=== PATIENT | male | born 1970 | race Caucasian/White ===

== ENCOUNTER 2018-08-28 22:25 | Inpatient (IN) ==
[2018-08-29] MEDS ORDERED: Sod Chloride 0.9% Inj 1,000 ML IV.SIG ONE (00:33)
[2018-08-29 00:46] LABS: Baso % (Auto) 0.4 % (0.0-2.0); Eos # (Auto) 0.1 th/mm3 (0.0-0.4); Hematocrit 40.8 % (39.0-51.0); Hemoglobin 13.2 gm/dL (13.0-17.0); Lymph # (Auto) 2.2 th/mm3 (1.0-4.8); Mean Corpuscular HGB Conc 32.4 % (32.0-36.0); Mean Corpuscular Hemoglobin 27.4 pg (27.0-34.0); Mean Corpuscular Volume 84.7 fL (80.0-100.0); Mean Platelet Volume 9.7 fL (7.0-11.0); Mono # (Auto) 0.8 th/mm3 (0.0-0.9); Mono % (Auto) 9.8 % (0.0-8.0); Neut # (Auto) 4.6 th/mm3 (1.8-7.7); Neut % (Auto) 59.8 % (16.0-70.0); Platelet Count 159 th/mm3 (150-450); Red Blood Count 4.82 mil/mm3 (4.50-5.90); Red Cell Distribution Width 14.7 % (11.6-17.2); White Blood Count 7.7 th/mm3 (4.0-11.0)
[2018-08-29 00:57] LABS: Activated Partial Thrombo Time 26.9 sec (23.4-31.7); INR 1.2 Ratio; Prothrombin Time 11.7 sec (9.8-11.6)
[2018-08-29 01:16] LABS: Alanine Aminotransferase 34 U/L (12-78); Albumin 3.8 g/dL (3.4-5.0); Anion Gap 6 meq/L (5-15); Aspartate Aminotransferase 23 U/L (15-37); Blood Urea Nitrogen 28 mg/dL (7-18); Calcium 7.9 mg/dL (8.5-10.1); Carbon Dioxide 29.4 meq/L (21.0-32.0); Chloride 108 meq/L (98-107); Glomerular Filtration Rate 67 mL/min (>89); Glucose,Random 109 mg/dL (74-106); Potassium 3.6 meq/L (3.5-5.1); Sodium 143 meq/L (136-145)
[2018-08-29 01:17] LABS: Alkaline Phosphatase 60 U/L (45-117); Total Protein 6.8 g/dL (6.4-8.2)
--- NOTE | 2018-08-29 01:22 | ED ---
HPI General Chief complaint: GI Bleed Stated complaint: Blood in stool, Stomach pain Time Seen by Provider: 08/29/18 00:19 Source: patient Mode of arrival: ambulatory Limitations: no limitations History of Present Illness HPI Narrative: 47 yo M c/o BRBPR for the past two days. + hx colonoscopy > five years ago, not sure of results. minimal generalized abdominal pain precedes urge to defecate followed by liquid bloody stool and resolution of pain. no n/ v. no fever/chills. no similar prior events. no recent travel. no family hx colon ca. pt otherwise healthy, denies significant PMH. Med reconciliation shows methylphenidate and metoprolol. Related Data Home Medications Medication Instructions Recorded Confirmed methylphenidate HCl [Concerta] 18 mg PO DAILY 08/29/18 08/29/18 metoprolol tartrate 25 mg PO DAILY 08/29/18 08/29/18 Allergies Allergy/AdvReac Type Severity Reaction Status Date / Time No Known Allergies Allergy Verified 08/28/18 22:41 Review of Systems ROS: all other systems reviewed are negative [facility] Medical History Medical History ADD (attention deficit disorder) (Acute) Hypertension (Acute) Surgical History Surgical History No history of previous surgery (Acute) Social History Social History Substance History: No History of Abuse Second Hand Smoke Exposure: No Smoking Status: Never smoker How Often Do You Have a Drink Containing Alcohol: Monthly or less Recent Travel in [facility] within the Last 8 Weeks: No Recent Out of Country Travel within the Last 8 Weeks: No Immunization History Tetanus Immunization: Unsure Exam Narrative Exam Narrative: GENERAL: 47-year-old male well-nourished well-developed pleasant RECTAL: No external hemorrhoid. Dark red blood guaiac positive. No mass. SKIN: Focused skin assessment warm/dry. HEAD: Atraumatic. Normocephalic. EYES: Pupils equal and round. No scleral icterus. No injection or drainage. ENT: No nasal bleeding or discharge. Mucous membranes pink and moist. NECK: Trachea midline. No JVD. CARDIOVASCULAR: Regular rate and rhythm. No murmur appreciated. RESPIRATORY: No accessory muscle use. Clear to auscultation. Breath sounds equal bilaterally. GASTROINTESTINAL: Abdomen soft, non-tender, nondistended. Hepatic and splenic margins not palpable. MUSCULOSKELETAL: No obvious deformities. No clubbing. No cyanosis. No edema. NEUROLOGICAL: Awake and alert. No obvious cranial nerve deficits. Motor grossly within normal limits. Normal speech. PSYCHIATRIC: Appropriate mood and affect; insight and judgment normal. Procedures Hemaprompt Stool Procedural Steps Taken: specimen placed in appropriate test area, developer placed on specimen and control areas and controls appropriately positive and negative Hemaprompt Stool Result: positive Course Initial Documented Vital Signs Temperature 98.5 F 08/28/18 22:41 Pulse Rate 77 08/28/18 22:41 Respiratory Rate 15 08/28/18 22:41 Blood Pressure 120/72 08/28/18 22:41 Pulse Oximetry 97 08/28/18 22:41 Last Documented Vital Signs Temperature 98.5 F 08/28/18 22:41 Pulse Rate 69 08/29/18 00:34 Respiratory Rate 17 08/29/18 00:34 Blood Pressure 123/75 08/29/18 00:34 Pulse Oximetry 99 08/29/18 00:35 Medical Decision Making MDM Narrative Medical decision making narrative: The white blood cell count is 7700 with a hemoglobin of 13.2 and a platelet count of 159 The BUN/creatinine is 28/1.16 The remaining indices are normal 47-year-old male with hematochezia for two days. Patient is hemodynamically stable currently. d/w Dr Bray for [facility] at approximately 130AM. Medical Screen Exam Complete: Yes Emergency Medical Condition: Yes Lab Data Result diagrams: 08/29/18 00:35 08/29/18 00:35 Lab Results 08/29/18 08/29/18 08/29/18 Range/Units 00:35 00:35 00:35 WBC 7.7 (4.0-11.0) th/mm3 RBC 4.82 (4.50-5.90) mil/mm3 Hgb 13.2 (13.0-17.0) gm/dL Hct 40.8 (39.0-51.0) % MCV 84.7 (80.0-100.0) fL MCH 27.4 (27.0-34.0) pg MCHC 32.4 (32.0-36.0) % RDW 14.7 (11.6-17.2) % Plt Count 159 (150-450) th/mm3 MPV 9.7 (7.0-11.0) fL Neut % (Auto) 59.8 (16.0-70.0) % Lymph % (Auto) 29.0 (9.0-44.0) % [place] % (Auto) 9.8 H (0.0-8.0) % Eos % (Auto) 1.0 (0.0-4.0) % Baso % (Auto) 0.4 (0.0-2.0) % Neut # (Auto) 4.6 (1.8-7.7) th/mm3 Lymph # (Auto) 2.2 (1.0-4.8) th/mm3 [place] # (Auto) 0.8 (0.0-0.9) th/mm3 Eos # (Auto) 0.1 (0.0-0.4) th/mm3 Baso # (Auto) 0.0 (0.0-0.2) th/mm3 WBC Differential . Differential Comment Auto diff final PT 11.7 H (9.8-11.6) sec INR 1.2 Ratio APTT 26.9 (23.4-31.7) sec Sodium 143 (136-145) meq/L Potassium 3.6 (3.5-5.1) meq/L Chloride 108 H (98-107) meq/L Carbon Dioxide 29.4 (21.0-32.0) meq/L Anion Gap 6 (5-15) meq/L BUN 28 H (7-18) mg/dL Creatinine 1.16 (0.60-1.30) mg/dL Estimated GFR 67 L (>89) mL/min Random Glucose 109 H (74-106) mg/dL Calcium 7.9 L (8.5-10.1) mg/dL Total Bilirubin 0.4 (0.2-1.0) mg/dL AST 23 (15-37) U/L ALT 34 (12-78) U/L Alkaline Phosphatase 60 (45-117) U/L Total Protein 6.8 (6.4-8.2) g/dL Albumin 3.8 (3.4-5.0) g/dL Blood Type Blood Type Recheck Antibody Screen 08/29/18 Range/Units 00:35 WBC (4.0-11.0) th/mm3 RBC (4.50-5.90) mil/mm3 Hgb (13.0-17.0) gm/dL Hct (39.0-51.0) % MCV (80.0-100.0) fL MCH (27.0-34.0) pg MCHC (32.0-36.0) % RDW (11.6-17.2) % Plt Count (150-450) th/mm3 MPV (7.0-11.0) fL Neut % (Auto) (16.0-70.0) % Lymph % (Auto) (9.0-44.0) % [place] % (Auto) (0.0-8.0) % Eos % (Auto) (0.0-4.0) % Baso % (Auto) (0.0-2.0) % Neut # (Auto) (1.8-7.7) th/mm3 Lymph # (Auto) (1.0-4.8) th/mm3 [place] # (Auto) (0.0-0.9) th/mm3 Eos # (Auto) (0.0-0.4) th/mm3 Baso # (Auto) (0.0-0.2) th/mm3 WBC Differential Differential Comment PT (9.8-11.6) sec INR Ratio APTT (23.4-31.7) sec Sodium (136-145) meq/L Potassium (3.5-5.1) meq/L Chloride (98-107) meq/L Carbon Dioxide (21.0-32.0) meq/L Anion Gap (5-15) meq/L BUN (7-18) mg/dL Creatinine (0.60-1.30) mg/dL Estimated GFR (>89) mL/min Random Glucose (74-106) mg/dL Calcium (8.5-10.1) mg/dL Total Bilirubin (0.2-1.0) mg/dL AST (15-37) U/L ALT (12-78) U/L Alkaline Phosphatase (45-117) U/L Total Protein (6.4-8.2) g/dL Albumin (3.4-5.0) g/dL Blood Type O Positive Blood Type Recheck Required Antibody Screen Negative Discharge Plan Discharge Order Discharge Orders: ED Use Only Admit Order (Routine); Ordered 08/29/18 Ordered By: Valentín Bey Physicians Team ED Provider: Valentín Bey Primary Care Provider: UNKNOWN, Rxs /Orders / Referrals /Forms Prescriptions: No Action methylphenidate HCl [Concerta] 18 mg Tablet Extended Release 24hr 18 mg PO DAILY RF: 0 metoprolol tartrate 25 mg Tablet 25 mg PO DAILY RF: 0 Discharge Interventions Interventions: Vital Signs Last Done: 08/29/18 00:34 Status ED Status: With Doctor
[2018-08-29] MEDS ORDERED: Bisacodyl 10 MG Supp RECTAL PRN (01:36)
[2018-08-29] MEDS: Sod Chloride 0.9% Inj 1,000 ML IV.CONT SCH ×3 (02:09→13:03)
--- NOTE | 2018-08-29 03:09 | P.HPIM ---
History of Present Illness Service: [facility] Primary Care Physician: UNKNOWN Chief Complaint: Bloody stools History of Present Illness: 47-year-old male with a history of ADD and hypertension presented to the ED with complaints of bloody stools. He states for the last 2 days he has been having pain with defecation followed by liquid bloody stools. He denies any nausea or vomiting or fevers or chills. His last colonoscopy was greater than 5 years ago. Hemoccult positive in ER. [facility] Medical History Medical History ADD (attention deficit disorder) (Acute) Hypertension (Acute) Surgical History Surgical History No history of previous surgery (Acute) Family History Family History Other Family history non-contributory Social History Social History Substance History: No History of Abuse Second Hand Smoke Exposure: No Smoking Status: Never smoker How Often Do You Have a Drink Containing Alcohol: Monthly or less Recent Travel in [facility] within the Last 8 Weeks: No Recent Out of Country Travel within the Last 8 Weeks: No Immunization History Tetanus Immunization: Unsure Medications and Allergies Allergies Allergy/AdvReac Type Severity Reaction Status Date / Time No Known Allergies Allergy Verified 08/28/18 22:41 Home Medications Medication Instructions Recorded Confirmed Type methylphenidate HCl [Concerta] 18 mg PO DAILY 08/29/18 08/29/18 History metoprolol tartrate 25 mg PO DAILY 08/29/18 08/29/18 History Active Medications: Active Medications Acetaminophen (Tylenol) 650 mg PO Q4H PRN PRN Reason: Temp > 100.4 Al Hydroxide/Mg Hydroxide (Milk Of Magnesia Liq) 30 ml PO Q12H PRN PRN Reason: Mild Constipation Bisacodyl (Dulcolax Supp) 10 mg RECTAL DAILY PRN PRN Reason: SEVERE CONSITIPATION Sodium Chloride (Ns Inj) 1,000 mls @ 100 mls/hr IV.CONT .Q10H KENNETH Last Admin: 08/29/18 02:09 Dose: 100 mls/hr Lactulose (Lactulose Liq) 30 ml PO DAILY PRN PRN Reason: SEVERE CONSITIPATION Ondansetron HCl (Zofran Inj) 4 mg IV.PUSH Q6H PRN PRN Reason: NAUSEA OR VOMITING Pantoprazole Sodium (Protonix Inj) 40 mg IV.PUSH Q12H KENNETH Senna/Docusate Sodium (Anna-Colace) 1 tab PO BID KENNETH Sennosides (Senokot) 17.2 mg PO Q12H PRN PRN Reason: Moderate Constipation Sodium Chloride (Ns Flush) 2 ml IV.FLUSH PRN PRN PRN Reason: FLUSH AFTER USING IV ACCESS Sodium Chloride (Ns Flush) 2 ml IV.FLUSH BID KENNETH Sodium Chloride (Ns Flush) 2 ml IV.FLUSH PRN PRN PRN Reason: FLUSH AFTER USING IV ACCESS Physical Exam Vital signs: Vital Signs 08/28/18 22:41 08/29/18 00:34 08/29/18 00:35 Temperature 98.5 F Pulse Rate 77 69 Respiratory Rate 15 17 Blood Pressure 120/72 123/75 Pulse Oximetry 97 99 99 08/29/18 02:04 08/29/18 02:08 Temperature Pulse Rate 68 76 Respiratory Rate 16 Blood Pressure 105/69 Pulse Oximetry 98 Intake & Output 08/28/18 08/28/18 08/29/18 06:59 18:59 06:59 Intake Total 1000 / 1000 Balance 1000 / 1000 Weight 100.6 kg Intake: IV 1000 / 1000 NS Inj 1,000 ML @ Wide Open IV. 1000 / 1000 SIG BOLUS ONE Rx#:[id number] Narrative: GENERAL: Well-nourished patient in no acute distress SKIN: Warm and dry. EYES: No scleral icterus. No injection or drainage. NECK: Supple, trachea midline. No JVD or lymphadenopathy. CARDIOVASCULAR: Regular rate and rhythm without murmurs, gallops, or rubs. RESPIRATORY: Breath sounds equal bilaterally. No accessory muscle use. GASTROINTESTINAL: Abdomen soft, non-tender, nondistended. MUSCULOSKELETAL: No cyanosis, or edema. Results Labs CBC & Chem 7: 08/29/18 00:35 08/29/18 00:35 Caprini VTE Risk Assessment Caprini VTE Risk Assessment: No/Low Risk (score <= 1) Caprini Risk Assessment Model: Point Value = 1 Point Value = 2 Point Value = 3 Point Value = 5 Age 41-60 Minor surgery BMI > 25 kg/m2 Swollen legs Varicose veins or History of unexplained or recurrent spontaneous Oral contraceptives or hormone replacement Sepsis (< 1 month) Serious lung disease, including pneumonia (< 1 month) Abnormal pulmonary function Acute myocardial infarction Congestive heart failure (< 1 month) History of inflammatory bowel disease Medical patient at bed rest Age 61-74 Arthroscopic surgery Major open surgery (> 45 min) Laparoscopic surgery (> 45 min) Malignancy Confined to bed (> 72 hours) Immobilizing plaster cast Central venous access Age >= 75 History of VTE Family history of VTE Factor V Leiden Prothrombin 32030T Lupus anticoagulant Anticardiolipin antibodies Elevated serum homocysteine Heparin-induced thrombocytopenia Other congenital or acquired thrombophilia Stroke (< 1 month) Elective arthroplasty Hip, pelvis, or leg fracture Acute spinal cord injury (< 1 month) Prophylaxis Regimen: Total Risk Factor Score Risk Level Prophylaxis Regimen 0-1 Low Early ambulation 2 Moderate Order ONE of the following: *Sequential Compression Device (SCD) *Heparin 5000 units SQ BID 3-4 Higher Order ONE of the following medications: *Heparin 5000 units SQ TID *Enoxaparin/Lovenox 40 mg SQ daily (WT < 150 kg, CrCl > 30 mL/min) *Enoxaparin/Lovenox 30 mg SQ daily (WT < 150 kg, CrCl > 10-29 mL/min) *Enoxaparin/Lovenox 30 mg SQ BID (WT < 150 kg, CrCl > 30 mL/min) AND/OR *Sequential Compression Device (SCD) 5 or more Highest Order ONE of the following medications: *Heparin 5000 units SQ TID (Preferred with Epidurals) *Enoxaparin/Lovenox 40 mg SQ daily (WT < 150 kg, CrCl > 30 mL/min) *Enoxaparin/Lovenox 30 mg SQ daily (WT < 150 kg, CrCl > 10-29 mL/min) *Enoxaparin/Lovenox 30 mg SQ BID (WT < 150 kg, CrCl > 30 mL/min) AND *Sequential Compression Device (SCD) Assessment and Plan Plan 47-year-old male with a history of ADD and hypertension presented to the ED with complaints of bloody stools. GI bleed Hemoccult positive in the ER -Hemoglobin is stable at 13.2, serial hemoglobins ordered -Protonix IV -GI for evaluation -N.p.o. Hypertension, chronic -Resume home medications, monitor vitals DVT prophylaxis: SCDs, hold chemical due to GI bleed
[2018-08-29] MEDS: Pantoprazole Inj 40 MG Vial IV.PUSH SCH ×2 (09:42→20:57)
[2018-08-29] MEDS: Senna/Docusate Sodium 8.6/50 MG Tablet PO SCH ×2 (09:42→21:04)
[2018-08-29] MEDS: METHYLPHENIDATE 18 MG PO SCH (09:43)
[2018-08-29] MEDS: Metoprolol Tartrate 25 MG Tablet PO SCH (09:44)
[2018-08-29 12:13] LABS: Baso % (Auto) 0.3 % (0.0-2.0); Eos % (Auto) 0.8 % (0.0-4.0); Hematocrit 32.6 % (39.0-51.0); Hemoglobin 10.7 gm/dL (13.0-17.0); Lymph # (Auto) 1.1 th/mm3 (1.0-4.8); Lymph % (Auto) 24.6 % (9.0-44.0); Mean Corpuscular HGB Conc 32.8 % (32.0-36.0); Mean Corpuscular Hemoglobin 28.3 pg (27.0-34.0); Mean Corpuscular Volume 86.3 fL (80.0-100.0); Mean Platelet Volume 9.4 fL (7.0-11.0); Mono # (Auto) 0.4 th/mm3 (0.0-0.9); Mono % (Auto) 8.6 % (0.0-8.0); Neut % (Auto) 65.7 % (16.0-70.0); Platelet Count 128 th/mm3 (150-450); Red Blood Count 3.78 mil/mm3 (4.50-5.90); White Blood Count 4.5 th/mm3 (4.0-11.0)
--- NOTE | 2018-08-29 13:34 | P.CONGI ---
History of Present Illness Consult date: 08/29/18 Consult reason: Rectal bleed Chief complaint: Lower GI bleed History of Present Illness: Patient is a pleasant 47-year-old male with history of hypertension ADD who came to the ER last night for profuse bloody stools. Reported that for the last 2 days he has been having bloody stools with mild diffuse abdominal pain with no nausea and vomiting. Patient denies fever. Patient stated that this has happened to him in the past where he had a colonoscopy and showed normal result. However patient cannot remember the year but could be more than 5 years ago. Otherwise he said he is pretty healthy. He does not take any blood thinners at home. He admitted to drinking alcohol occasionally but does not smoke cigarettes. he denies any change in his medications. Our service is consulted for rectal bleeding. <Funmilayo Singh - Last Filed: 08/29/18 13:24> Review of Systems All other systems reviewed negative except as stated in HPI <Funmilayo Singh - Last Filed: 08/29/18 13:24> PMFSH - History History Provided By: Patient - Medical History Medical History: Medical History (Last Reviewed 08/29/18 @ 03:23 by PATRICA Burton) ADD (attention deficit disorder) Hypertension - Surgical History Surgical History: Surgical History (Last Reviewed 08/29/18 @ 03:23 by PATRICA Burton) No history of previous surgery - Family History Family History: Family History (Last Reviewed 08/29/18 @ 03:23 by PATRICA Burton) Other Family history non-contributory - Tobacco History Second Hand Smoke Exposure: No Tobacco Use In Past 30 Days: No Smoking Status: Never smoker - Alcohol History How Often Do You Have a Drink Containing Alcohol: Monthly or less - Substance Use History Substance History: No History of Abuse - Travel History Recent Travel in the [place] Within the Last 8 Weeks: No Recent Travel Out of the Country Within the Last 8 Weeks: No - Immunization History Tetanus Immunization: Unsure <Funmilayo Singh - Last Filed: 08/29/18 13:24> - Medical History Medical History: Medical History (Last Reviewed 08/29/18 @ 03:23 by PATRICA Burton) ADD (attention deficit disorder) Hypertension - Surgical History Surgical History: Surgical History (Last Reviewed 08/29/18 @ 03:23 by PATRICA Burton) No history of previous surgery - Family History Family History: Family History (Last Reviewed 08/29/18 @ 03:23 by PATRICA Burton) Other Family history non-contributory <Jean-PierreHarvey veras - Last Filed: 08/29/18 13:49> Medications and Allergies Active Medications: Active Medications Acetaminophen (Tylenol) 650 mg PO Q4H PRN PRN Reason: Temp > 100.4 Al Hydroxide/Mg Hydroxide (Milk Of Magnesia Liq) 30 ml PO Q12H PRN PRN Reason: Mild Constipation Bisacodyl (Dulcolax Supp) 10 mg RECTAL DAILY PRN PRN Reason: SEVERE CONSITIPATION Sodium Chloride (Ns Inj) 1,000 mls @ 100 mls/hr IV.CONT .Q10H [facility] Last Admin: 08/29/18 13:03 Dose: 100 mls/hr Lactulose (Lactulose Liq) 30 ml PO DAILY PRN PRN Reason: SEVERE CONSITIPATION Methylphenidate HCl (Concerta) 18 mg PO DAILY [facility] Last Admin: 08/29/18 09:43 Dose: 18 mg Metoprolol Tartrate (Lopressor) 25 mg PO DAILY [facility] Last Admin: 08/29/18 09:44 Dose: 25 mg Ondansetron HCl (Zofran Inj) 4 mg IV.PUSH Q6H PRN PRN Reason: NAUSEA OR VOMITING Pantoprazole Sodium (Protonix Inj) 40 mg IV.PUSH Q12H [facility] Last Admin: 08/29/18 09:42 Dose: 40 mg Polyethylene Glycol/Electrolytes (Colyte Liq) 4,000 ml PO ONCE ONE Stop: 08/29/18 16:01 Senna/Docusate Sodium (Anna-Colace) 1 tab PO BID [facility] Last Admin: 08/29/18 09:42 Dose: Not Given Sennosides (Senokot) 17.2 mg PO Q12H PRN PRN Reason: Moderate Constipation Sodium Chloride (Ns Flush) 2 ml IV.FLUSH PRN PRN PRN Reason: FLUSH AFTER USING IV ACCESS Sodium Chloride (Ns Flush) 2 ml IV.FLUSH BID [facility] Last Admin: 08/29/18 09:44 Dose: 2 ml Sodium Chloride (Ns Flush) 2 ml IV.FLUSH PRN PRN PRN Reason: FLUSH AFTER USING IV ACCESS <Funmilayo Singh - Last Filed: 08/29/18 13:24> Active Medications: Active Medications Acetaminophen (Tylenol) 650 mg PO Q4H PRN PRN Reason: Temp > 100.4 Al Hydroxide/Mg Hydroxide (Milk Of Magnesia Liq) 30 ml PO Q12H PRN PRN Reason: Mild Constipation Bisacodyl (Dulcolax Supp) 10 mg RECTAL DAILY PRN PRN Reason: SEVERE CONSITIPATION Sodium Chloride (Ns Inj) 1,000 mls @ 100 mls/hr IV.CONT .Q10H [facility] Last Admin: 08/29/18 13:03 Dose: 100 mls/hr Lactulose (Lactulose Liq) 30 ml PO DAILY PRN PRN Reason: SEVERE CONSITIPATION Methylphenidate HCl (Concerta) 18 mg PO DAILY [facility] Last Admin: 08/29/18 09:43 Dose: 18 mg Metoprolol Tartrate (Lopressor) 25 mg PO DAILY [facility] Last Admin: 08/29/18 09:44 Dose: 25 mg Ondansetron HCl (Zofran Inj) 4 mg IV.PUSH Q6H PRN PRN Reason: NAUSEA OR VOMITING Pantoprazole Sodium (Protonix Inj) 40 mg IV.PUSH Q12H [facility] Last Admin: 08/29/18 09:42 Dose: 40 mg Polyethylene Glycol/Electrolytes (Colyte Liq) 4,000 ml PO ONCE ONE Stop: 08/29/18 16:01 Senna/Docusate Sodium (Anna-Colace) 1 tab PO BID [facility] Last Admin: 08/29/18 09:42 Dose: Not Given Sennosides (Senokot) 17.2 mg PO Q12H PRN PRN Reason: Moderate Constipation Sodium Chloride (Ns Flush) 2 ml IV.FLUSH PRN PRN PRN Reason: FLUSH AFTER USING IV ACCESS Sodium Chloride (Ns Flush) 2 ml IV.FLUSH BID [facility] Last Admin: 08/29/18 09:44 Dose: 2 ml Sodium Chloride (Ns Flush) 2 ml IV.FLUSH PRN PRN PRN Reason: FLUSH AFTER USING IV ACCESS <Harvey Morejon - Last Filed: 08/29/18 13:49> Allergies Allergy/AdvReac Type Severity Reaction Status Date / Time No Known Allergies Allergy Verified 08/28/18 22:41 Home Medications Medication Instructions Recorded Confirmed Type methylphenidate HCl [Concerta] 18 mg PO DAILY 08/29/18 08/29/18 History metoprolol tartrate 25 mg PO DAILY 08/29/18 08/29/18 History Exam Vital signs: Vital Signs 08/28/18 22:41 08/29/18 00:34 08/29/18 00:35 Temperature 98.5 F Pulse Rate 77 69 Respiratory Rate 15 17 Blood Pressure 120/72 123/75 Pulse Oximetry 97 99 99 08/29/18 02:04 08/29/18 02:08 08/29/18 03:44 Temperature 97.5 F L Pulse Rate 68 76 76 Respiratory Rate 16 12 Blood Pressure 105/69 108/65 Pulse Oximetry 98 96 08/29/18 07:28 08/29/18 11:56 08/29/18 12:58 Temperature 97.9 F 98.3 F Pulse Rate 66 63 Respiratory Rate 16 16 Blood Pressure 105/59 L 109/64 Pulse Oximetry 96 100 100 Intake & Output 08/28/18 08/29/18 08/29/18 18:59 06:59 18:59 Intake Total 1000 / 1000 1000 / 1000 Balance 1000 / 1000 1000 / 1000 Weight 100.6 kg Intake: IV 1000 / 1000 1000 / 1000 NS Inj 1,000 ML @ 100 mls/hr IV 1000 / 1000 .CONT .Q10H [facility] Rx#:[id number] NS Inj 1,000 ML @ Wide Open IV. 1000 / 1000 SIG BOLUS ONE Rx#:[id number] Oral 0 / 0 Other: # Voids 0 Date of Last Bowel Movement 08/28/18 08/29/18 - Constitutional no acute distress - Routine HEENT Exam Head: Present: normocephalic - Routine Neck Exam Present: supple - Routine Respiratory Exam Present: CTA bilaterally - Routine Cardiovascular Exam Present: RRR, S1, S2 - Routine Abdominal Exam Present: soft, normoactive bowel sounds. Absent: tenderness, distended - Routine Skin Exam Present: intact - Routine Neurological Exam Present: alert, oriented X3 <Abdurahman,Arsheema - Last Filed: 08/29/18 13:24> Vital signs: Vital Signs 08/28/18 22:41 08/29/18 00:34 08/29/18 00:35 Temperature 98.5 F Pulse Rate 77 69 Respiratory Rate 15 17 Blood Pressure 120/72 123/75 Pulse Oximetry 97 99 99 08/29/18 02:04 08/29/18 02:08 08/29/18 03:44 Temperature 97.5 F L Pulse Rate 68 76 76 Respiratory Rate 16 12 Blood Pressure 105/69 108/65 Pulse Oximetry 98 96 08/29/18 07:28 08/29/18 11:56 08/29/18 12:58 Temperature 97.9 F 98.3 F Pulse Rate 66 63 Respiratory Rate 16 16 Blood Pressure 105/59 L 109/64 Pulse Oximetry 96 100 100 Intake & Output 08/28/18 08/29/18 08/29/18 18:59 06:59 18:59 Intake Total 1000 / 1000 1000 / 1000 Balance 1000 / 1000 1000 / 1000 Weight 100.6 kg Intake: IV 1000 / 1000 1000 / 1000 NS Inj 1,000 ML @ 100 mls/hr IV 1000 / 1000 .CONT .Q10H [facility] Rx#:[id number] NS Inj 1,000 ML @ Wide Open IV. 1000 / 1000 SIG BOLUS ONE Rx#:[id number] Oral 0 / 0 Other: # Voids 0 Date of Last Bowel Movement 08/28/18 08/29/18 <Harvey Morejon - Last Filed: 08/29/18 13:49> Results - Labs CBC & Chem 7: 08/29/18 11:52 08/29/18 00:35 Labs: Laboratory Results - last 24 hr 08/29/18 08/29/18 08/29/18 00:35 00:35 00:35 WBC 7.7 RBC 4.82 Hgb 13.2 Hct 40.8 MCV 84.7 MCH 27.4 MCHC 32.4 RDW 14.7 Plt Count 159 MPV 9.7 Neut % (Auto) 59.8 Lymph % (Auto) 29.0 Erath % (Auto) 9.8 H Eos % (Auto) 1.0 Baso % (Auto) 0.4 Neut # (Auto) 4.6 Lymph # (Auto) 2.2 Erath # (Auto) 0.8 Eos # (Auto) 0.1 Baso # (Auto) 0.0 WBC Differential . Differential Comment Auto diff final PT 11.7 H INR 1.2 APTT 26.9 Sodium 143 Potassium 3.6 Chloride 108 H Carbon Dioxide 29.4 Anion Gap 6 BUN 28 H Creatinine 1.16 Estimated GFR 67 L Random Glucose 109 H Calcium 7.9 L Total Bilirubin 0.4 AST 23 ALT 34 Alkaline Phosphatase 60 Total Protein 6.8 Albumin 3.8 Blood Type Blood Type Recheck Antibody Screen 08/29/18 08/29/18 00:35 11:52 WBC 4.5 RBC 3.78 L Hgb 10.7 L D Hct 32.6 L MCV 86.3 MCH 28.3 MCHC 32.8 RDW 15.0 Plt Count 128 L MPV 9.4 Neut % (Auto) 65.7 Lymph % (Auto) 24.6 Erath % (Auto) 8.6 H Eos % (Auto) 0.8 Baso % (Auto) 0.3 Neut # (Auto) 3.0 Lymph # (Auto) 1.1 Erath # (Auto) 0.4 Eos # (Auto) 0.0 Baso # (Auto) 0.0 WBC Differential . Differential Comment Auto diff final PT INR APTT Sodium Potassium Chloride Carbon Dioxide Anion Gap BUN Creatinine Estimated GFR Random Glucose Calcium Total Bilirubin AST ALT Alkaline Phosphatase Total Protein Albumin Blood Type O Positive Blood Type Recheck Required Antibody Screen Negative <Funmilayo Singh - Last Filed: 08/29/18 13:24> - Labs CBC & Chem 7: 08/29/18 11:52 08/29/18 00:35 Labs: Laboratory Results - last 24 hr 08/29/18 08/29/18 08/29/18 00:35 00:35 00:35 WBC 7.7 RBC 4.82 Hgb 13.2 Hct 40.8 MCV 84.7 MCH 27.4 MCHC 32.4 RDW 14.7 Plt Count 159 MPV 9.7 Neut % (Auto) 59.8 Lymph % (Auto) 29.0 Erath % (Auto) 9.8 H Eos % (Auto) 1.0 Baso % (Auto) 0.4 Neut # (Auto) 4.6 Lymph # (Auto) 2.2 Erath # (Auto) 0.8 Eos # (Auto) 0.1 Baso # (Auto) 0.0 WBC Differential . Differential Comment Auto diff final PT 11.7 H INR 1.2 APTT 26.9 Sodium 143 Potassium 3.6 Chloride 108 H Carbon Dioxide 29.4 Anion Gap 6 BUN 28 H Creatinine 1.16 Estimated GFR 67 L Random Glucose 109 H Calcium 7.9 L Total Bilirubin 0.4 AST 23 ALT 34 Alkaline Phosphatase 60 Total Protein 6.8 Albumin 3.8 Blood Type Blood Type Recheck Antibody Screen 08/29/18 08/29/18 00:35 11:52 WBC 4.5 RBC 3.78 L Hgb 10.7 L D Hct 32.6 L MCV 86.3 MCH 28.3 MCHC 32.8 RDW 15.0 Plt Count 128 L MPV 9.4 Neut % (Auto) 65.7 Lymph % (Auto) 24.6 Erath % (Auto) 8.6 H Eos % (Auto) 0.8 Baso % (Auto) 0.3 Neut # (Auto) 3.0 Lymph # (Auto) 1.1 Erath # (Auto) 0.4 Eos # (Auto) 0.0 Baso # (Auto) 0.0 WBC Differential . Differential Comment Auto diff final PT INR APTT Sodium Potassium Chloride Carbon Dioxide Anion Gap BUN Creatinine Estimated GFR Random Glucose Calcium Total Bilirubin AST ALT Alkaline Phosphatase Total Protein Albumin Blood Type O Positive Blood Type Recheck Required Antibody Screen Negative <Harvey Morejon - Last Filed: 08/29/18 13:49> Assessment and Plan (1) Rectal bleeding Status: Acute Code(s): K62.5 - Hemorrhage of anus and rectum (2) Hematochezia Status: Acute Code(s): K92.1 - Melena - Plan 08/29/2018 Patient is a pleasant 47-year-old male with history of hypertension ADD who came to the ER last night for profuse bloody stools. Reported that for the last 2 days he has been having bloody stools with mild diffuse abdominal pain with no nausea and vomiting. Patient denies fever. Patient stated that this has happened to him in the past where he had a colonoscopy and showed normal result. However patient cannot remember the year but could be more than 5 years ago. Otherwise he said he is pretty healthy. He does not take any blood thinners at home. He admitted to drinking alcohol occasionally but does not smoke cigarettes. he denies any change in his medications. Our service is consulted for rectal bleeding. Assessment Rectal bleeding Hematochezia Hemoglobin 13.2 hematocrit 40.8 platelet 159 WBC 7.7 INR 1.2 Liver enzymes are normal AST 23 ALT 34 Plan Clear liquid diet For colonoscopy in the morning N.p.o. after midnight Please obtain consent Monitor for active bleeding Notify GI if with profuse rectal bleed Monitor H&H IV hydration Electrolyte replacement Supportive care Further recommendations to follow Patient was seen and examined by and by Dr. Morejon and his note is written in his behalf - Attending Attestation Dr. Morejon <Funmilayo Singh - Last Filed: 08/29/18 13:24> (1) Rectal bleeding Status: Acute Code(s): K62.5 - Hemorrhage of anus and rectum (2) Hematochezia Status: Acute Code(s): K92.1 - Melena - Plan Seen and examined with [employer], colonoscopy planned for tomorrow. Bowel prep ordered, monitor for bleeding. Liquid diet today. Discussed with pt.Thank you <Harvey Morejon - Last Filed: 08/29/18 13:49>
[2018-08-29] MEDS ORDERED: PEG 3350/E-Lyte Soln 4000 ML Bottle PO ONE (16:00)
[2018-08-29 16:23] LABS: Hematocrit 31.9 % (39.0-51.0); Hemoglobin 10.4 gm/dL (13.0-17.0)
[2018-08-29 21:15] LABS: Hematocrit 31.1 % (39.0-51.0); Hemoglobin 10.2 gm/dL (13.0-17.0)
[2018-08-30] MEDS: Sod Chloride 0.9% Inj 1,000 ML IV.CONT SCH ×4 (00:23→20:33)
[2018-08-30] MEDS: Metoprolol Tartrate 25 MG Tablet PO SCH ×3 (08:35→13:29)
[2018-08-30] MEDS: Pantoprazole Inj 40 MG Vial IV.PUSH SCH ×2 (08:35→20:34)
[2018-08-30] MEDS: METHYLPHENIDATE 18 MG PO SCH (08:35)
[2018-08-30] MEDS ORDERED: Metoprolol Tartrate 25 MG Tablet PO ONE ×2 (08:38→16:24)
[2018-08-30] MEDS ORDERED: Chlorhexidine Gluconate 2% 1 Pack (2 Cloths) TOPICAL ONE (08:38)
[2018-08-30] MEDS ORDERED: Sodium Chlor 0.9% Inj 500 ML IV.SIG ONE (09:00)
[2018-08-30 09:29] LABS: Hematocrit 28.6 % (39.0-51.0); Hemoglobin 9.4 gm/dL (13.0-17.0)
[2018-08-30] MEDS: Senna/Docusate Sodium 8.6/50 MG Tablet PO SCH ×2 (09:31→20:34)
[2018-08-30 10:09] LABS: Alanine Aminotransferase 26 U/L (12-78); Alkaline Phosphatase 41 U/L (45-117); Anion Gap 7 meq/L (5-15); Aspartate Aminotransferase 14 U/L (15-37); Blood Urea Nitrogen 10 mg/dL (7-18); Calcium 7.4 mg/dL (8.5-10.1); Carbon Dioxide 26.5 meq/L (21.0-32.0); Chloride 112 meq/L (98-107); Glomerular Filtration Rate Greater Than 89 mL/min (>89); Glucose,Random 89 mg/dL (74-106); Potassium 3.6 meq/L (3.5-5.1); Sodium 145 meq/L (136-145); Total Protein 5.4 g/dL (6.4-8.2)
--- NOTE | 2018-08-30 11:12 | P.PNIM ---
Subjective Interval history: Follow up visit GI bleed Patient reports moderate amount of bright red blood per rectum. Denies feeling dizzy, lightheaded, short of breath or chest pain. No palpitations. Last colonscopy > 5 yrs. Physical Exam Vital signs: Vital Signs 08/29/18 11:56 08/29/18 12:58 08/29/18 15:11 Temperature 98.3 F 98.2 F Pulse Rate 63 80 Respiratory Rate 16 16 Blood Pressure 109/64 111/60 Pulse Oximetry 100 100 97 08/29/18 20:00 08/30/18 00:00 08/30/18 04:00 Temperature 98 F 98.7 F 98.1 F Pulse Rate 80 77 66 Respiratory Rate 16 16 12 Blood Pressure 104/67 107/55 L 99/56 L Pulse Oximetry 99 95 93 L 08/30/18 07:53 08/30/18 08:00 08/30/18 08:40 Temperature 98.7 F Pulse Rate 83 74 Respiratory Rate 16 Blood Pressure 100/56 L Pulse Oximetry 95 99 Intake & Output 08/29/18 08/30/18 08/30/18 18:59 06:59 18:59 Intake Total 1000 / 1000 2200 / 2200 Balance 1000 / 1000 2200 / 2200 Weight 98.6 kg Intake: IV 1000 / 1000 1000 / 1000 NS Inj 1,000 ML @ 100 mls/hr IV 1000 / 1000 1000 / 1000 .CONT .Q10H [facility] Rx#:[id number] Oral 1200 / 1200 Other: # Voids 3 Date of Last Bowel Movement 08/29/18 08/29/18 08/30/18 # Bowel Movements 1 Narrative: GENERAL: Well-nourished patient in no acute distress SKIN: Warm and dry. EYES: No scleral icterus. No injection or drainage. NECK: Supple, trachea midline. No JVD or lymphadenopathy. CARDIOVASCULAR: Regular rate and rhythm without murmurs, gallops, or rubs. RESPIRATORY: Breath sounds equal bilaterally. No accessory muscle use. GASTROINTESTINAL: Abdomen soft, non-tender, nondistended. MUSCULOSKELETAL: No cyanosis, or edema. Results Labs CBC & Chem 7: 08/30/18 08:53 08/30/18 08:53 Assessment and Plan (1) Rectal bleeding: Code(s): K62.5 - Hemorrhage of anus and rectum Status: Acute (2) Hematochezia: Code(s): K92.1 - Melena Status: Acute Plan 47-year-old male with a history of ADD and hypertension presented to the ED with complaints of bloody stools. GI bleed Hemoccult positive in the ER -Hemoglobin 9.4 serial hemoglobins ordered -Protonix IV -GI for evaluation, plan for colonoscopy today -poor prep patient to have repeat colonscopy in am Anemia, unspecified -may be secondary to acute blood loss -continue to monitor Hypertension, chronic -Resume home medications, monitor vitals MDM: self Code: Full GI ppx: Protonix IV DVT ppx: SCD's Discussed with: RN, patient, supervising MD Dispo: home once cleared by GI Progress Note: Quality VTE Deep Vein Thrombosis/Pulmonary Embolism Present on Admission: No
--- NOTE | 2018-08-30 11:58 | GIPROC ---
[facility] [address] [facility]. [facility], [address] COLONOSCOPY PROCEDURE REPORT EXAM DATE: 08/30/2018 PATIENT NAME: Joni Blair V MR #: [id number] BIRTHDATE: 1970 ENDOSCOPIST: Harvey Morejon MD ORDER #: [id number] FURNACE CARETAKER: Alma Burris and Kathy Palomares STATUS: inpatient INDICATIONS: The patient is a 47 yr old male here for a colonoscopy due to iron deficiency anemia and hematochezia PROCEDURE PERFORMED: Colonoscopy, diagnostic MEDICATIONS: None and Per Anesthesia. PREP QUALITY: The Mcarthur Bowel Prep Score was Right colon 1, Mid colon 1, and Left colon 1. Total = 3. PREP TYPE:GoLytely ESTIMATED BLOOD LOSS: None CONSENT: The patient understands the risks and benefits of the procedure and understands that these risks include, but are not limited to: sedation, allergic reaction, infection, perforation and/or bleeding. Alternative means of evaluation and treatment include, among others: physical exam, x-rays, and/or surgical intervention. The patient elects to proceed with this endoscopic procedure. medical equipment was checked for proper function. Hand hygiene and appropriate measures for infection prevention was taken. After the risks, benefits and alternatives of the procedure were thoroughly explained, Informed consent was verified, confirmed and timeout was successfully executed by the treatment team. A digital exam revealed external hemorrhoids The Pentax [id number] endoscope was introduced through the anus and advanced to the cecum, which was identified by both the appendix and ileocecal valve. The instrument was then slowly withdrawn as the colon was fully examined. COLON FINDINGS: Moderate diverticulosis was noted in the sigmoid colon. No bleeding was noted from the diverticulosis. No active bleeding, Old blood mixed with stools throughout colon. Retroflexed views revealed internal hemorrhoids and Retroflexed views revealed small internal hemorrhoids The scope was then completely withdrawn from the patient and the procedure terminated. ADVERSE EVENTS: There were no complications. IMPRESSIONS: 1. Moderate diverticulosis was noted in the sigmoid colon 2. No active bleeding, Old blood mixed with stools throughout colon 3. Retroflexed views revealed internal hemorrhoids 4. Retroflexed views revealed small internal hemorrhoids 5. Revealed external hemorrhoids RECOMMENDATIONS: Continue surveillance RECALL: Return 1 day Colonoscopy Harvey Morejon MD eSigned: Harvey Morejon MD 08/30/2018 11:58 AM cc: PATIENT NAME: Joni Blair V MR#: [id number]
[2018-08-30] MEDS ORDERED: Magnesium Citrate Liq 300 ML Bottle PO ONE (12:01)
[2018-08-30] MEDS: Acetaminophen 325 MG Tablet PO PRN (21:33)
[2018-08-31] MEDS: Sod Chloride 0.9% Inj 1,000 ML IV.CONT SCH ×3 (06:30→23:01)
[2018-08-31] MEDS: Senna/Docusate Sodium 8.6/50 MG Tablet PO SCH ×2 (08:50→20:58)
[2018-08-31] MEDS: Pantoprazole Inj 40 MG Vial IV.PUSH SCH ×2 (08:50→21:00)
[2018-08-31] MEDS: METHYLPHENIDATE 18 MG PO SCH (08:51)
[2018-08-31] MEDS: Metoprolol Tartrate 25 MG Tablet PO SCH (09:47)
[2018-08-31] MEDS: Acetaminophen 325 MG Tablet PO PRN ×2 (12:51→21:12)
[2018-08-31] MEDS ORDERED: Lidocaine PF 1% Inj 5 ML Syringe OTHER ONE (14:26)
[2018-08-31] MEDS ORDERED: Phenylephrine/NS 1000 MCG/10ML Syringe IV.PUSH ONE (14:26)
--- NOTE | 2018-08-31 15:01 | GIPROC ---
[facility] [address] [facility]. [facility], [address] COLONOSCOPY PROCEDURE REPORT EXAM DATE: 08/31/2018 PATIENT NAME: Joni Blair V MR #: [id number] BIRTHDATE: 1970 ENDOSCOPIST: Fer Beach MD ORDER #: [id number] CLINICAL PROGRAM COORDINATOR: Katarzyna Mehta and Walt Hurtado STATUS: inpatient INDICATIONS: The patient is a 47 yr old male here for a colonoscopy due to rectal bleeding and iron deficiency anemia PROCEDURE PERFORMED: Colonoscopy, diagnostic MEDICATIONS: Per Anesthesia and None. PREP QUALITY: fair ESTIMATED BLOOD LOSS: None CONSENT: The patient understands the risks and benefits of the procedure and understands that these risks include, but are not limited to: sedation, allergic reaction, infection, perforation and/or bleeding. Alternative means of evaluation and treatment include, among others: physical exam, x-rays, and/or surgical intervention. The patient elects to proceed with this endoscopic procedure. medical equipment was checked for proper function. Hand hygiene and appropriate measures for infection prevention was taken. After the risks, benefits and alternatives of the procedure were thoroughly explained, Informed consent was verified, confirmed and timeout was successfully executed by the treatment team. A digital exam was performed and revealed no abnormalities of the rectum The [id number] (Std Gastro) endoscope was introduced through the anus and advanced to the cecum, which was identified by both the appendix and ileocecal valve. The instrument was then slowly withdrawn as the colon was fully examined. COLON FINDINGS: Moderate diverticulosis was noted in the descending colon and sigmoid colon. Retroflexed views revealed internal hemorrhoids and Retroflexed views revealed small internal hemorrhoids The scope was then completely withdrawn from the patient and the procedure terminated. PROCEDURE WITHDRAWAL TIME:8minutes ADVERSE EVENTS: There were no complications. IMPRESSIONS: 1. Moderate diverticulosis was noted in the descending colon and sigmoid colon 2. Retroflexed views revealed internal hemorrhoids 3. Retroflexed views revealed small internal hemorrhoids 4. Was performed 5. Revealed no abnormalities of the rectum RECOMMENDATIONS: STAT Bleeding Scan Serial H/H Supportive tx RECALL: Return 1 year Colonoscopy Fer Beach MD eSigned: Fer Beach MD 08/31/2018 3:00 PM cc: PATIENT NAME: Joni Blair V MR#: [id number]
--- NOTE | 2018-08-31 15:01 | ECG ---
Date Performed: 08/30/2018 Time Performed: 08:43:32 PTAGE: 47 years EKG: Sinus rhythm MINIMAL ST DEPRESSION BORDERLINE ECG NO PREVIOUS TRACING DOCTOR: Gregorio De La Vega Interpretating Date/Time 08/31/2018 14:59:39
--- NOTE | 2018-08-31 17:35 | P.PNIM ---
Subjective Interval history: 47-year-old gentleman with history of hypertension admitted with bloody stools, underwent colonoscopy with poor prep, for repeat colonoscopy today Patient seen and examined, doing well, states still having some blood in his stools, denies significant abdominal pain no nausea vomiting, Physical Exam Vital signs: Vital Signs 08/30/18 20:00 08/30/18 21:10 08/30/18 23:00 Temperature 99.8 F H 100.0 F H 99.7 F H Pulse Rate 96 H 94 H 85 Respiratory Rate 16 18 18 Blood Pressure 107/66 103/61 90/50 L Pulse Oximetry 97 96 82 L 08/31/18 00:00 08/31/18 03:45 08/31/18 04:00 Temperature 99.7 F H Pulse Rate 78 85 67 Respiratory Rate 18 Blood Pressure 109/58 L Pulse Oximetry 96 08/31/18 08:00 08/31/18 08:04 08/31/18 12:00 Temperature 97.8 F Pulse Rate 74 69 84 Respiratory Rate 18 Blood Pressure 140/84 Pulse Oximetry 97 08/31/18 12:04 08/31/18 16:10 Temperature 100.0 F H Pulse Rate 85 75 Respiratory Rate 18 Blood Pressure 105/68 Pulse Oximetry 96 Intake & Output 08/30/18 08/31/18 08/31/18 18:59 06:59 18:59 Intake Total 1100 / 1100 1120 / 1120 300 / 300 Output Total 0 / 0 Balance 1100 / 1100 1120 / 1120 300 / 300 Weight 97 kg Intake: IV 1000 / 1000 NS Inj 1,000 ML @ 100 mls/hr IV 1000 / 1000 .CONT .Q10H [facility] Rx#:[id number] Oral 0 / 0 120 / 120 Anesthesia Amount 500 / 500 300 / 300 Other 600 / 600 Output: Urine 0 / 0 Other: # Voids 2 3 Date of Last Bowel Movement 08/30/18 08/30/18 08/30/18 Weight On Admission 97 kg Narrative: GENERAL: Well-nourished patient in no acute distress SKIN: Warm and dry. EYES: No scleral icterus. No injection or drainage. NECK: Supple, trachea midline. No JVD or lymphadenopathy. CARDIOVASCULAR: Regular rate and rhythm without murmurs, gallops, or rubs. RESPIRATORY: Breath sounds equal bilaterally. No accessory muscle use. GASTROINTESTINAL: Abdomen soft, non-tender, nondistended. No mass MUSCULOSKELETAL: No cyanosis, or edema. Results Labs CBC & Chem 7: 08/30/18 08:53 08/30/18 08:53 Assessment and Plan (1) Rectal bleeding: Code(s): K62.5 - Hemorrhage of anus and rectum Status: Acute (2) Hematochezia: Code(s): K92.1 - Melena Status: Acute Plan ACUTE RECTAL BLEEDING - s/p colonoscopy w finding no poor prep, old mixed blood w stool, diverticulosis and small int hemorroids, no active site of bleeding, for repeat colonoscopy today, GI following, iv protonix ANEMIA due to acute GI BLOOD LOSS - transfuse if continues or less than 8 HTN cont metoprolol ADD - methylphemidate dvt prophylaxis - scd dispo - home when stable Progress Note: Quality VTE Deep Vein Thrombosis/Pulmonary Embolism Present on Admission: No
--- NOTE | 2018-08-31 18:56 | NM ---
EXAM DATE: 08/31/2018 6:44 PM EST AGE/SEX: 47 years / Male INDICATIONS: Bright red blood in rectum. CLINICAL DATA: This is the patient's initial encounter. Patient reports that signs and symptoms have been present for 1 day and indicates a pain score of 2/10. MEDICAL/SURGICAL HISTORY: Hypertension. None. COMPARISON: No prior exams available for comparison. TECHNIQUE: Following the modified in vitro labeling of autologous red cells, dynamic continuous image s were acquired for two hours. ?? DOSE: 19.8 mCi Tc 99m Ultratag Labeled Red Blood Cells IV IMAGING TIME: 2 hr FINDINGS: Biodistribution: There is a very good labeling of red cells without significant uptake in the gastri c wall. There is good delineation of the blood pool of the spleen and abdominal vessels. Bleeding: No episodes of active GI bleeding are observed during two hours of continuous observation . CONCLUSION: 1. No active hemorrhage is identified. Activity in the pelvis probably represents bladder and genita ls. Electronically signed by: Tomás Reina MD Board Certified Radiologist 08/31/2018 6:55 PM EST
[2018-08-31 23:32] LABS: Baso % (Auto) 0.3 % (0.0-2.0); Hematocrit 25.1 % (39.0-51.0); Hemoglobin 8.3 gm/dL (13.0-17.0); Lymph # (Auto) 0.6 th/mm3 (1.0-4.8); Lymph % (Auto) 13.6 % (9.0-44.0); Mean Corpuscular HGB Conc 33.1 % (32.0-36.0); Mean Corpuscular Hemoglobin 27.9 pg (27.0-34.0); Mean Corpuscular Volume 84.4 fL (80.0-100.0); Mean Platelet Volume 8.8 fL (7.0-11.0); Mono # (Auto) 0.3 th/mm3 (0.0-0.9); Mono % (Auto) 8.4 % (0.0-8.0); Neut # (Auto) 3.2 th/mm3 (1.8-7.7); Neut % (Auto) 77.7 % (16.0-70.0); Platelet Count 141 th/mm3 (150-450); Red Blood Count 2.97 mil/mm3 (4.50-5.90); Red Cell Distribution Width 14.9 % (11.6-17.2); White Blood Count 4.1 th/mm3 (4.0-11.0)
[2018-09-01] MEDS ORDERED: Acetaminophen 325 MG Tablet PO PRN (00:12)
[2018-09-01] MEDS ORDERED: Sodium Chlor 0.9% Inj 250 ML IV.SIG SCH (01:00)
--- NOTE | 2018-09-01 02:34 | CT ---
EXAM DATE: 09/01/2018 12:59 AM EST AGE/SEX: 47 years / Male INDICATIONS: Patient passed a large amount of blood in his stool CLINICAL DATA: This is the patient's initial encounter. Patient reports that signs and symptoms have been present for 1 day and indicates a pain score of 0/10. MEDICAL/SURGICAL HISTORY: Hypertension. None. RADIATION DOSE: 7.94 CTDI (mGy) COMPARISON: No prior exams available for comparison. TECHNIQUE: Volumetric scanning was performed using a multi-row detector CT scanner during bolus infu sarah of 100 ml Omnipaque 350 (iohexol) nonionic water-soluble contrast as a single exam dose. . The data was post processed with a variety of visualization algorithms including full volume maximum int ensity projection, multi-planar sliding thin slab reformation, curved planar reformation, and surface rendering techniques. Using automated exposure control and adjustment of the mA and/or kV according to patient size, radiation dose was kept as low as reasonably achievable to obtain optimal diagnosti c quality images. DICOM format image data is available electronically for review and comparison. FINDINGS: Abdominal Aorta: Abdominal aorta is normal in caliber throughout its length with no significant ather osclerotic disease. Single bilateral renal arteries are patent. Mesenteric vessels are patent. Pelvis:Iliac vessels are patent bilaterally with no significant atherosclerotic calcification. Miscellaneous: Benign-appearing 1.5 cm cortical cyst in the lateral midpole of the right kidney. Nono bstructing 4.6 mm calculus in the midpole collecting system of the left kidney. 2.3 cm left inguinal hernia only contains fat. There is some diverticular disease of the descending and sigmoid portions o f the colon without diverticulitis CONCLUSION: 1. Abdominal and pelvic vasculature is normal throughout with no significant atherosclerotic disease . Mesenteric and renal vessels are widely patent. 2. Benign-appearing cortical cyst in the lateral midpole the right kidney with a nonobstructing 4.6 mm stone in the midpole collecting system of the left kidney. 3. Diverticular disease of the descending and sigmoid colon without diverticulitis. 4. Small left inguinal hernia only contains fat. Electronically signed by: Bimal Garcia MD Board Certified Radiologist 09/01/2018 2:33 AM EST
[2018-09-01] MEDS: Pantoprazole Inj 40 MG Vial IV.PUSH SCH ×2 (08:43→21:05)
[2018-09-01] MEDS: METHYLPHENIDATE 18 MG PO SCH (08:43)
[2018-09-01] MEDS: Metoprolol Tartrate 25 MG Tablet PO SCH (08:44)
[2018-09-01] MEDS: Senna/Docusate Sodium 8.6/50 MG Tablet PO SCH ×2 (08:44→21:01)
[2018-09-01] MEDS: Acetaminophen 325 MG Tablet PO PRN ×2 (08:45→21:24)
[2018-09-01] MEDS: Sod Chloride 0.9% Inj 1,000 ML IV.CONT SCH (09:39)
[2018-09-01] MEDS ORDERED: Levofloxacin 500 mg Premix Inj 500 MG/100 ML PIGGYBACK IV.SIG SCH (11:00)
[2018-09-01] MEDS ORDERED: Phenylephrine/NS 1000 MCG/10ML Syringe IV.PUSH ONE (11:36)
[2018-09-01] MEDS ORDERED: Lidocaine PF 1% Inj 5 ML Syringe OTHER ONE (11:36)
[2018-09-01] MEDS: metroNIDAZOLE 500 MG Tablet PO SCH ×3 (11:37→21:01)
--- NOTE | 2018-09-01 12:06 | GIPROC ---
[facility] [address] [facility]. [facility] [place], [id number] EGD PROCEDURE REPORT EXAM DATE: 09/01/2018 PATIENT NAME: Joni Blair V MR #: [id number] BIRTHDATE: 1970 ATTENDING: Fer Beach MD ORDER #: [id number] [employer] CLERK: Katarzyna Mehta and Kathy Palomares STATUS: inpatient INDICATIONS: The patient is a 47 yr old male here for an EGD due to hematochezia PROCEDURE PERFORMED: EGD, diagnostic MEDICATIONS: Per Anesthesia and None. TOPICAL ANESTHETIC: CONSENT: The patient understands the risks and benefits of the procedure and understands that these risks include, but are not limited to: sedation, allergic reaction, infection, perforation and/or bleeding. Alternative means of evaluation and treatment include, among others: physical exam, x-rays, and/or surgical intervention. The patient elects to proceed with this endoscopic procedure. medical equipment was checked for proper function. Hand hygiene and appropriate measures for infection prevention was taken. After the risks, benefits and alternatives of the procedure were thoroughly explained, Informed consent was verified, confirmed and timeout was successfully executed by the treatment team. The patient was anesthetized with topical anesthesia and the Pentax EG-[id number] endoscope was introduced through the mouth and advanced to the second portion of the duodenum. Retroflexed views revealed no abnormalities The gastroscope was then slowly withdrawn and removed. ESOPHAGUS: The mucosa of the esophagus appeared normal. STOMACH: A small sessile polyp was found in the gastric fundus. No active bleeding or SRH seen. DUODENUM: The duodenal mucosa appeared normal in the entire duodenum. ADVERSE EVENTS: There were no complications. IMPRESSIONS: 1. The esophagus appeared normal 2. Small sessile polyp was found in the gastric fundus 4. Normal duodenal mucosa in the entire duodenum 5. Retroflexed views revealed no abnormalities RECOMMENDATIONS: Monitor labs Supportivetx Angiogram if blleds again PATIENT CONDITION: stable DISPOSITION: Inpatient REPEAT EXAM: Return as needed for EGD Fer Beach MD eSigned: Fer Beach MD 09/01/2018 12:06 PM cc: PATIENT NAME: Joni Blair V MR#: [id number]
--- NOTE | 2018-09-01 15:23 | P.PNIM ---
Subjective Interval history: Patient had a syncopal event last night while he was using the bathroom and had a large amount of bloody stool. He reports he is feeling okay this morning. No lightheadedness, no focal weakness. No bowel movement this morning. He is due for EGD today. Physical Exam Vital signs: Vital Signs 08/31/18 16:04 08/31/18 16:10 08/31/18 19:53 Temperature 98.0 F Pulse Rate 80 75 87 Respiratory Rate 18 Blood Pressure 101/64 Pulse Oximetry 96 08/31/18 20:00 08/31/18 21:10 08/31/18 22:53 Temperature 100.0 F H 100.9 F H 100.6 F H Pulse Rate 86 100 H Respiratory Rate 16 18 Blood Pressure 136/63 120/65 Pulse Oximetry 98 95 08/31/18 23:53 09/01/18 00:00 09/01/18 00:01 Temperature 98.8 F 98.6 F Pulse Rate 94 H 93 H 101 H Respiratory Rate 18 16 Blood Pressure 101/57 L 120/65 Pulse Oximetry 96 100 09/01/18 00:53 09/01/18 01:44 09/01/18 01:53 Temperature 99.5 F 99.8 F H 99.8 F H Pulse Rate 89 98 H 98 H Respiratory Rate 16 20 18 Blood Pressure 110/69 106/65 106/65 Pulse Oximetry 96 93 L 95 09/01/18 02:04 09/01/18 03:51 09/01/18 04:25 Temperature 99.5 F 99.0 F Pulse Rate 94 H 80 74 Respiratory Rate 18 18 Blood Pressure 92/59 L 104/71 Pulse Oximetry 95 97 09/01/18 05:22 09/01/18 05:39 09/01/18 07:57 Temperature 98.7 F 99.3 F 100.6 F H Pulse Rate 86 89 88 Respiratory Rate 20 18 18 Blood Pressure 103/69 109/75 106/77 Pulse Oximetry 97 96 97 09/01/18 12:00 09/01/18 12:05 09/01/18 12:40 Temperature 99.1 F Pulse Rate 75 83 Respiratory Rate 16 Blood Pressure 88/52 L 97/59 L Pulse Oximetry 94 L 09/01/18 13:09 Temperature 98.2 F Pulse Rate 88 Respiratory Rate 18 Blood Pressure 110/75 Pulse Oximetry 95 Intake & Output 08/31/18 09/01/18 09/01/18 18:59 06:59 18:59 Intake Total 300 / 300 800 / 800 500 / 500 Balance 300 / 300 800 / 800 500 / 500 Intake: IV 200 / 200 NS Inj 1,000 ML @ 100 mls/hr IV 200 / 200 .CONT .Q10H KENNETH Rx#:[id number] Oral 0 / 0 Anesthesia Amount 300 / 300 300 / 300 Intake (Blood Product) Amt 800 / 800 0 / 0 Rbc As-3 Leukoreduced Unit 400 / 400 0 / 0 [id number] Rbc As-3 Leukoreduced Unit 400 / 400 [id number] Other: # Voids 3 Date of Last Bowel Movement 08/30/18 08/31/18 # Bowel Movements 0 Narrative: GENERAL: This is a well-nourished, well-developed patient, in no apparent distress. CARDIOVASCULAR: Normal rate and regular rhythm without murmurs, gallops, or rubs. RESPIRATORY: Good respiratory efforts. Breath sounds equal and clear to auscultation bilaterally. GASTROINTESTINAL: Abdomen soft, non-tender, non-distended. Normal active bowel sounds MUSCULOSKELETAL: Extremities without cyanosis, or edema. NEURO: Alert & Oriented x4 to person, place, time, situation. Moves all ext x4 PSYCH: Appropriate mood and affect. Results Labs CBC & Chem 7: 08/31/18 23:21 08/30/18 08:53 Imaging Imaging: Impressions GI Bleed Scan Nuclear Medicine 08/31/18 14:57 CONCLUSION: 1. No active hemorrhage is identified. Activity in the pelvis probably represents bladder and genitals. Abdomen/Pelvis CTA 09/01/18 00:00 CONCLUSION: 1. Abdominal and pelvic vasculature is normal throughout with no significant atherosclerotic disease. Mesenteric and renal vessels are widely patent. 2. Benign-appearing cortical cyst in the lateral midpole the right kidney with a nonobstructing 4.6 mm stone in the midpole collecting system of the left kidney. 3. Diverticular disease of the descending and sigmoid colon without diverticulitis. 4. Small left inguinal hernia only contains fat. Assessment and Plan (1) Rectal bleeding: Code(s): K62.5 - Hemorrhage of anus and rectum Status: Acute (2) Hematochezia: Code(s): K92.1 - Melena Status: Acute Plan 47-year-old male with: Hematochezia: -GI following. Patient underwent colonoscopy which revealed diverticulosis and internal hemorrhoids. No active site identified. EGD revealed a small sessile polyp in the gastric fundus. Otherwise esophagus unremarkable. -Bleeding scan is negative. - H&H trending down. Patient requiring blood transfusion. Anemia due to acute blood loss from GI bleeding: - Patient currently receiving 2 units of PRBC transfusion. - Continue to monitor H&H - Continue to monitor stool Probable diverticulitis: - Patient with known diverticulosis on CT. He has been having fevers on and off. No other source identified. Discussed risk and benefit of treatment with him. At this time we decided to treat for probable diverticulitis with Levaquin and Flagyl. Continue to monitor. Vasovagal syncope: - Patient had an event during a bloody bowel movement. We will continue to monitor. Blood transfusion as noted above. HTN cont metoprolol ADD - methylphemidate dvt prophylaxis - scd dispo - home when stable Progress Note: Quality VTE Deep Vein Thrombosis/Pulmonary Embolism Present on Admission: No
[2018-09-01 16:18] LABS: Baso % (Auto) 0.3 % (0.0-2.0); Eos % (Auto) 0.1 % (0.0-4.0); Hematocrit 30.7 % (39.0-51.0); Hemoglobin 10.4 gm/dL (13.0-17.0); Lymph # (Auto) 0.6 th/mm3 (1.0-4.8); Lymph % (Auto) 18.3 % (9.0-44.0); Mean Corpuscular HGB Conc 33.7 % (32.0-36.0); Mean Corpuscular Volume 88.9 fL (80.0-100.0); Mean Platelet Volume 9.3 fL (7.0-11.0); Mono # (Auto) 0.5 th/mm3 (0.0-0.9); Mono % (Auto) 14.7 % (0.0-8.0); Neut # (Auto) 2.1 th/mm3 (1.8-7.7); Neut % (Auto) 66.6 % (16.0-70.0); Platelet Count 141 th/mm3 (150-450); Red Blood Count 3.46 mil/mm3 (4.50-5.90); Red Cell Distribution Width 16.7 % (11.6-17.2); White Blood Count 3.1 th/mm3 (4.0-11.0)
[2018-09-01 16:46] LABS: Calcium 7.3 mg/dL (8.5-10.1); Carbon Dioxide 29.7 meq/L (21.0-32.0); Potassium 3.1 meq/L (3.5-5.1)
[2018-09-01 17:03] LABS: Calcium-Albumin Corrected 8.1 mg/dL (8.5-10.1)
[2018-09-01] MEDS: Levofloxacin 500 mg Premix Inj 500 MG/100 ML PIGGYBACK IV.SIG SCH (22:06)
--- NOTE | 2018-09-01 22:44 | XR ---
EXAM DATE: 09/01/2018 10:41 PM EST AGE/SEX: 47 years / Male INDICATIONS: Cough and fever. CLINICAL DATA: This is the patient's initial encounter. Patient reports that signs and symptoms have been present for 1 day and indicates a pain score of 0/10. MEDICAL/SURGICAL HISTORY: Hypertension. None. COMPARISON: No prior exams available for comparison. FINDINGS: A single AP view of the chest demonstrates the lungs to be symmetrically aerated without evidence of mass, infiltrate or effusion. The cardiomediastinal contours are unremarkable. Osseous structures a re intact. CONCLUSION: The lungs are clear. Electronically signed by: Kenneth Katz MD Board Certified Radiologist 09/01/2018 10:42 PM EST
[2018-09-02 03:02] LABS: Bilirubin,Urine Negative (Negative); Clarity,Urine Clear (Clear); Color,Urine Straw (Yellw/Straw); Glucose,Urine (UA) Negative (Negative); Leukocyte Esterase,Urine Negative (Negative); Mucus,Urine Few /lpf (Occasional); Nitrite,Urine Negative (Negative); Specific Gravity,Urine 1.008 (1.002-1.035)
[2018-09-02] MEDS: metroNIDAZOLE 500 MG Tablet PO SCH ×3 (05:33→21:52)
[2018-09-02 07:18] LABS: Hematocrit 29.9 % (39.0-51.0); Mean Corpuscular HGB Conc 33.5 % (32.0-36.0); Mean Corpuscular Hemoglobin 29.6 pg (27.0-34.0); Mean Corpuscular Volume 88.1 fL (80.0-100.0); Mean Platelet Volume 9.4 fL (7.0-11.0); Platelet Count 147 th/mm3 (150-450); Red Blood Count 3.39 mil/mm3 (4.50-5.90); Red Cell Distribution Width 16.5 % (11.6-17.2); White Blood Count 2.8 th/mm3 (4.0-11.0)
[2018-09-02 07:48] LABS: Calcium 7.1 mg/dL (8.5-10.1); Carbon Dioxide 29.6 meq/L (21.0-32.0); Potassium 3.4 meq/L (3.5-5.1)
[2018-09-02 07:57] LABS: Albumin 2.8 g/dL (3.4-5.0); Calcium-Albumin Corrected 8.1 mg/dL (8.5-10.1)
[2018-09-02] MEDS: Senna/Docusate Sodium 8.6/50 MG Tablet PO SCH ×2 (09:02→21:52)
[2018-09-02] MEDS: METHYLPHENIDATE 18 MG PO SCH (09:02)
[2018-09-02] MEDS: Pantoprazole Inj 40 MG Vial IV.PUSH SCH ×2 (09:02→21:51)
[2018-09-02] MEDS: Metoprolol Tartrate 25 MG Tablet PO SCH (09:02)
[2018-09-02] MEDS: Acetaminophen 325 MG Tablet PO PRN (09:03)
--- NOTE | 2018-09-02 10:29 | P.PNIM ---
Subjective Interval history: Patient reports he is feeling better today. He is tolerating his diet. No abdominal pain. T-max 100.4 today. Physical Exam Vital signs: Vital Signs 09/01/18 12:00 09/01/18 12:05 09/01/18 12:40 Temperature 99.1 F Pulse Rate 75 83 Respiratory Rate 16 Blood Pressure 88/52 L 97/59 L Pulse Oximetry 94 L 09/01/18 13:09 09/01/18 16:00 09/01/18 16:34 Temperature 98.2 F 99.3 F Pulse Rate 88 78 84 Respiratory Rate 18 18 Blood Pressure 110/75 110/75 Pulse Oximetry 95 95 09/01/18 20:00 09/01/18 20:14 09/02/18 00:00 Temperature 101.1 F H 99.0 F Pulse Rate 81 83 86 Respiratory Rate 16 16 Blood Pressure 105/80 95/66 L Pulse Oximetry 97 98 09/02/18 00:09 09/02/18 04:00 09/02/18 04:01 Temperature 99.0 F Pulse Rate 72 77 68 Respiratory Rate 16 Blood Pressure Pulse Oximetry 95 09/02/18 08:40 Temperature 100.4 F H Pulse Rate 85 Respiratory Rate 18 Blood Pressure 107/69 Pulse Oximetry 95 Intake & Output 09/01/18 09/02/18 09/02/18 18:59 06:59 18:59 Intake Total 1430 / 1430 620 / 620 Output Total 1000 / 1000 600 / 600 Balance 430 / 430 20 / 20 Weight 98.3 kg Intake: IV 650 / 650 100 / 100 NS Inj 1,000 ML @ 100 mls/hr IV 400 / 400 .CONT .Q10H KENNETH Rx#:[id number] Levaquin 500 mg Premix Inj 500 100 / 100 mg In 100 ml @ 100 mls/hr IV. SIG Q24H KENNETH Rx#:[id number] NS Inj 250 ML @ 15 mls/hr IV. 250 / 250 SIG ONCE KENNETH Rx#:[id number] Oral 480 / 480 520 / 520 Anesthesia Amount 300 / 300 Intake (Blood Product) Amt 0 / 0 Rbc As-3 Leukoreduced Unit 0 / 0 [id number] Output: Urine 1000 / 1000 600 / 600 Other: # Bowel Movements 1 Narrative: GENERAL: This is a well-nourished, well-developed patient, in no apparent distress. CARDIOVASCULAR: Normal rate and regular rhythm without murmurs, gallops, or rubs. RESPIRATORY: Good respiratory efforts. Breath sounds equal and clear to auscultation bilaterally. GASTROINTESTINAL: Abdomen soft, non-tender, non-distended. Normal active bowel sounds MUSCULOSKELETAL: Extremities without cyanosis, or edema. NEURO: Alert & Oriented x4 to person, place, time, situation. Moves all ext x4 PSYCH: Appropriate mood and affect. Results Labs CBC & Chem 7: 09/02/18 05:31 09/02/18 05:31 Imaging Imaging: Impressions Chest X-Ray 09/01/18 00:00 CONCLUSION: The lungs are clear. Assessment and Plan (1) Rectal bleeding: Code(s): K62.5 - Hemorrhage of anus and rectum Status: Acute (2) Hematochezia: Code(s): K92.1 - Melena Status: Acute Plan 47-year-old male with: Hematochezia: -GI following. Patient underwent colonoscopy which revealed diverticulosis and internal hemorrhoids. No active site identified. EGD revealed a small sessile polyp in the gastric fundus. Otherwise esophagus unremarkable. -Bleeding scan is negative. - H&H trended down. Patient required blood transfusion. - H&H stable today. Continue to monitor. Probable diverticulitis: - Patient with known diverticulosis on CT. He has been having fevers on and off. No other source identified. Discussed risk and benefit of treatment with him. At this time we decided to treat for probable diverticulitis with Levaquin and Flagyl. Continue to monitor. Anemia due to acute blood loss from GI bleeding: - Patient received 2 units of PRBC transfusion. - Continue to monitor H&H - Continue to monitor stool Vasovagal syncope: - Patient had an event during a bloody bowel movement. We will continue to monitor. Blood transfusion as noted above. No further symptoms. HTN cont metoprolol ADD - methylphemidate dvt prophylaxis - scd dispo - home when stable. If fever resolves and no further hematochezia, can hopefully DC home tomorrow. Progress Note: Quality VTE Deep Vein Thrombosis/Pulmonary Embolism Present on Admission: No
--- NOTE | 2018-09-02 15:30 | P.PNGI ---
Subjective Interval history: Patient laying in bed comfortably No complaints Dated to feel better today than yesterday No more rectal bleed however no BM today Physical Exam Vital signs: Vital Signs 09/01/18 16:00 09/01/18 16:34 09/01/18 20:00 Temperature 99.3 F 101.1 F H Pulse Rate 78 84 81 Respiratory Rate 18 16 Blood Pressure 110/75 105/80 Pulse Oximetry 95 97 09/01/18 20:14 09/02/18 00:00 09/02/18 00:09 Temperature 99.0 F Pulse Rate 83 86 72 Respiratory Rate 16 Blood Pressure 95/66 L Pulse Oximetry 98 09/02/18 04:00 09/02/18 04:01 09/02/18 08:00 Temperature 99.0 F Pulse Rate 77 68 68 Respiratory Rate 16 Blood Pressure Pulse Oximetry 95 09/02/18 08:40 09/02/18 10:00 09/02/18 13:26 Temperature 100.4 F H 99.5 F 99.0 F Pulse Rate 85 70 Respiratory Rate 18 18 Blood Pressure 107/69 101/66 Pulse Oximetry 95 95 Intake & Output 09/01/18 09/02/18 09/02/18 18:59 06:59 18:59 Intake Total 1430 / 1430 620 / 620 Output Total 1000 / 1000 600 / 600 Balance 430 / 430 Weight 98.3 kg Intake: IV 650 / 650 100 / 100 NS Inj 1,000 ML @ 100 mls/hr IV 400 / 400 .CONT .Q10H KENNETH Rx#:[id number] Levaquin 500 mg Premix Inj 500 100 / 100 mg In 100 ml @ 100 mls/hr IV. SIG Q24H KENNETH Rx#:[id number] NS Inj 250 ML @ 15 mls/hr IV. 250 / 250 SIG ONCE KENNETH Rx#:[id number] Oral 480 / 480 520 / 520 Anesthesia Amount 300 / 300 Intake (Blood Product) Amt 0 / 0 Rbc As-3 Leukoreduced Unit 0 / 0 [id number] Output: Urine 1000 / 1000 600 / 600 Other: Date of Last Bowel Movement 09/01/18 # Bowel Movements 1 - Constitutional no acute distress - Routine HEENT Exam Head: Present: normocephalic, atraumatic - Routine Neck Exam Present: supple - Routine Respiratory Exam Present: CTA bilaterally - Routine Cardiovascular Exam Present: RRR, S1, S2 - Routine Abdominal Exam Present: soft, normoactive bowel sounds. Absent: tenderness, distended - Routine Extremities Exam Present: pulses intact, normal capillary refill - Routine Skin Exam Present: intact - Routine Neurological Exam Present: alert, oriented X3 Results - Labs CBC & Chem 7: 09/02/18 05:31 09/02/18 05:31 Laboratory Results - last 24 hr 09/01/18 09/01/18 09/01/18 15:42 15:42 22:34 WBC 3.1 L RBC 3.46 L Hgb 10.4 L D Hct 30.7 L MCV 88.9 D MCH 30.0 MCHC 33.7 RDW 16.7 Plt Count 141 L MPV 9.3 Neut % (Auto) 66.6 Lymph % (Auto) 18.3 Rankin % (Auto) 14.7 H Eos % (Auto) 0.1 Baso % (Auto) 0.3 Neut # (Auto) 2.1 Lymph # (Auto) 0.6 L Rankin # (Auto) 0.5 Eos # (Auto) 0.0 Baso # (Auto) 0.0 WBC Differential . Differential Comment Auto diff final Sodium 146 H Potassium 3.1 L Chloride 110 H Carbon Dioxide 29.7 Anion Gap 6 BUN 7 Creatinine 0.94 Estimated GFR 86 L Random Glucose 128 H Lactic Acid Calcium 7.3 L* Calcium Adj for Albumin 8.1 L Albumin 3.0 L Urine Color Straw Urine Clarity Clear Urine pH 7.0 Ur Specific Alpine 1.008 Urine Protein Negative Urine Glucose (UA) Negative Urine Ketones Negative Urine Occult Blood Negative Urine Nitrate Negative Urine Bilirubin Negative Urine Urobilinogen Less than 2 Ur Leukocyte Esterase Negative Urine RBC Less than 1 Urine WBC Less than 1 Urine Mucus Few H Micro UA Comment Culture not ind Ur Microscopic Review Not Reportable Urine Culture Comments Culture not ind 09/01/18 09/02/18 09/02/18 22:51 05:31 05:31 WBC 2.8 L RBC 3.39 L Hgb 10.0 L Hct 29.9 L MCV 88.1 MCH 29.6 MCHC 33.5 RDW 16.5 Plt Count 147 L MPV 9.4 Neut % (Auto) Lymph % (Auto) Rankin % (Auto) Eos % (Auto) Baso % (Auto) Neut # (Auto) Lymph # (Auto) Rankin # (Auto) Eos # (Auto) Baso # (Auto) WBC Differential Differential Comment Sodium 144 Potassium 3.4 L Chloride 108 H Carbon Dioxide 29.6 Anion Gap 6 BUN 6 L Creatinine 0.93 Estimated GFR 87 L Random Glucose 91 Lactic Acid 2.0 Calcium 7.1 L* Calcium Adj for Albumin 8.1 L Albumin 2.8 L Urine Color Urine Clarity Urine pH Ur Specific Alpine Urine Protein Urine Glucose (UA) Urine Ketones Urine Occult Blood Urine Nitrate Urine Bilirubin Urine Urobilinogen Ur Leukocyte Esterase Urine RBC Urine WBC Urine Mucus Micro UA Comment Ur Microscopic Review Urine Culture Comments Microbiology 09/01/18 22:56 Blood - Peripheral Aerobic Blood Culture - Preliminary No growth in 1 day 09/01/18 22:56 Blood - Peripheral Anaerobic Blood Culture - Preliminary No growth in 1 day 09/01/18 22:51 Blood - Peripheral Aerobic Blood Culture - Preliminary No growth in 1 day 09/01/18 22:51 Blood - Peripheral Anaerobic Blood Culture - Preliminary No growth in 1 day - Imaging Impressions Chest X-Ray 09/01/18 00:00 CONCLUSION: The lungs are clear. Assessment and Plan (1) Rectal bleeding Status: Acute Code(s): K62.5 - Hemorrhage of anus and rectum (2) Hematochezia Status: Acute Code(s): K92.1 - Melena (3) Anemia Status: Acute Code(s): D64.9 - Anemia, unspecified - Plan 08/29/2018 Patient is a pleasant 47-year-old male with history of hypertension ADD who came to the ER last night for profuse bloody stools. Reported that for the last 2 days he has been having bloody stools with mild diffuse abdominal pain with no nausea and vomiting. Patient denies fever. Patient stated that this has happened to him in the past where he had a colonoscopy and showed normal result. However patient cannot remember the year but could be more than 5 years ago. Otherwise he said he is pretty healthy. He does not take any blood thinners at home. He admitted to drinking alcohol occasionally but does not smoke cigarettes. he denies any change in his medications. Our service is consulted for rectal bleeding. Assessment Rectal bleeding Hematochezia Hemoglobin 13.2 hematocrit 40.8 platelet 159 WBC 7.7 INR 1.2 Liver enzymes are normal AST 23 ALT 34 09/02/2018 Status post EGD 09/01/2018 showed The esophagus appeared normal. Small sessile polyp was found in the gastric fundus. Normal duodenal mucosa in the entire duodenum. Retroflexed views revealed no abnormalities Assessment Diverticular bleeding Hematochezia Chronic anemia Hypokalemia Hemoglobin today 10.0 hematocrit 29.9 potassium 3.4 Plan soft bland diet Monitor for active bleeding Monitor H&H Can discontinue IV hydration if tolerating soft bland diet Electrolyte replacement Supportive care Patient does not have any more rectal bleeding hemoglobin is stable GI will signed off, patient is stable from GI perspective Patient agreed to follow-up as an outpatient 2 weeks after discharge. Patient was seen and examined by and by Dr. Beach and this note is written on his behalf - Attending Attestation Dr. Beach
[2018-09-02] MEDS: Levofloxacin 500 mg Premix Inj 500 MG/100 ML PIGGYBACK IV.SIG SCH (21:52)
[2018-09-03 05:16] LABS: Hematocrit 32.8 % (39.0-51.0); Hemoglobin 10.8 gm/dL (13.0-17.0); Mean Corpuscular HGB Conc 32.9 % (32.0-36.0); Mean Corpuscular Hemoglobin 28.7 pg (27.0-34.0); Mean Corpuscular Volume 87.1 fL (80.0-100.0); Mean Platelet Volume 9.2 fL (7.0-11.0); Platelet Count 181 th/mm3 (150-450); Red Blood Count 3.77 mil/mm3 (4.50-5.90); Red Cell Distribution Width 16.6 % (11.6-17.2); White Blood Count 3.2 th/mm3 (4.0-11.0)
[2018-09-03 05:46] LABS: Anion Gap 8 meq/L (5-15); Blood Urea Nitrogen 7 mg/dL (7-18); Calcium 7.6 mg/dL (8.5-10.1); Carbon Dioxide 27.3 meq/L (21.0-32.0); Chloride 107 meq/L (98-107); Glomerular Filtration Rate Greater Than 89 mL/min (>89); Glucose,Random 102 mg/dL (74-106); Potassium 3.3 meq/L (3.5-5.1); Sodium 142 meq/L (136-145)
[2018-09-03] MEDS: metroNIDAZOLE 500 MG Tablet PO SCH (06:15)
[2018-09-03] MEDS: Pantoprazole Inj 40 MG Vial IV.PUSH SCH (08:13)
[2018-09-03] MEDS: METHYLPHENIDATE 18 MG PO SCH (08:13)
[2018-09-03] MEDS: Metoprolol Tartrate 25 MG Tablet PO SCH (08:14)
[2018-09-03] MEDS: Senna/Docusate Sodium 8.6/50 MG Tablet PO SCH (08:14)
[2018-09-03 08:40] VITALS: BP 113/68; PULSE 88; RESP 18; TEMP 99.4; O2SAT 96
--- NOTE | 2018-09-03 14:51 | P.DS ---
DS: Providers Date of admission: 08/30/18 17:15 Primary care physician: UNKNOWN Consults: 08/29/18 01:36 Consult to Gastroenterology Routine Consulting Provider: Harvey Morejon Reason for Consultation: Lower GI Bleed Notified:: Service Spoke with:: [email or web address] Date Notified:: 08/29/18 Time Notified:: 01:51 Ordering Provider: BECKY Brief History from admission: HPI as documented by the admitting physician: 47-year-old male with a history of ADD and hypertension presented to the ED with complaints of bloody stools. He states for the last 2 days he has been having pain with defecation followed by liquid bloody stools. He denies any nausea or vomiting or fevers or chills. His last colonoscopy was greater than 5 years ago. Hemoccult positive in ER. Patient update on day of discharge: Patient reports he is feeling well today. Tolerated the diet. No further bloody bowel movements or any other evidence of bleeding. No lightheadedness or chest pain. H&H improved. DS: Diagnosis Discharge Diagnosis (1) Rectal bleeding: Status: Acute (2) Hematochezia: Status: Acute (3) Anemia: Status: Acute DS: Summary 47-year-old male admitted and treated for the following Hematochezia: -GI followed the patient. Patient underwent colonoscopy which revealed diverticulosis and internal hemorrhoids. No active site identified. EGD revealed a small sessile polyp in the gastric fundus. Otherwise esophagus unremarkable. -Bleeding scan is negative. - H&H trended down. Patient required blood transfusion. Bleeding spontaneously resolved. H&H improved. He is advised to follow-up outpatient with GI. Diverticulitis: - Patient with known diverticulosis on CT. He has been having fevers on and off. No other source identified. Discussed risk and benefit of treatment with him. We decided to treat for diverticulitis with Levaquin and Flagyl. Fever resolved after he was started on antibiotics. He will be discharged home on oral antibiotics to complete the course of treatment. Anemia due to acute blood loss from GI bleeding: - Patient received 2 units of PRBC transfusion. -H&H improving. He is advised to follow-up outpatient with PCP. Vasovagal syncope: - Patient had an event during a bloody bowel movement. He received blood transfusion as noted above. No further symptoms. HTN cont metoprolol ADD -continue home the methylphemidate Time Spent with Patient Total time spent providing and/or coordinating discharge services: Quality: VTE Deep Vein Thrombosis/Pulmonary Embolism Present on Admission: No Exam Narrative Exam Narrative: GENERAL: This is a well-nourished, well-developed patient, in no apparent distress. CARDIOVASCULAR: Normal rate and regular rhythm without murmurs, gallops, or rubs. RESPIRATORY: Good respiratory efforts. Breath sounds equal and clear to auscultation bilaterally. GASTROINTESTINAL: Abdomen soft, non-tender, non-distended. Normal active bowel sounds MUSCULOSKELETAL: Extremities without cyanosis, or edema. NEURO: Alert & Oriented x4 to person, place, time, situation. Moves all ext x4 PSYCH: Appropriate mood and affect. Results Labs on day of discharge: Labs from last 24 hours 09/03/18 09/03/18 09/02/18 03:48 03:48 20:15 WBC 3.2 L RBC 3.77 L Hgb 10.8 L Hct 32.8 L MCV 87.1 MCH 28.7 MCHC 32.9 RDW 16.6 Plt Count 181 MPV 9.2 Sodium 142 Potassium 3.3 L Chloride 107 Carbon Dioxide 27.3 Anion Gap 8 BUN 7 Creatinine 0.83 Estimated GFR Greater than 89 POC Glucose 147 H Random Glucose 102 Calcium 7.6 L Preliminary micro results at discharge 09/01/18 22:56 Aerobic Blood Culture - Preliminary Blood - Peripheral No growth in 2 days Anaerobic Blood Culture - Preliminary No growth in 2 days 09/01/18 22:51 Aerobic Blood Culture - Preliminary Blood - Peripheral No growth in 2 days Anaerobic Blood Culture - Preliminary No growth in 2 days Impressions ITS Impressions GI Bleed Scan Nuclear Medicine 08/31/18 14:57 CONCLUSION: 1. No active hemorrhage is identified. Activity in the pelvis probably represents bladder and genitals. Abdomen/Pelvis CTA 09/01/18 00:00 CONCLUSION: 1. Abdominal and pelvic vasculature is normal throughout with no significant atherosclerotic disease. Mesenteric and renal vessels are widely patent. 2. Benign-appearing cortical cyst in the lateral midpole the right kidney with a nonobstructing 4.6 mm stone in the midpole collecting system of the left kidney. 3. Diverticular disease of the descending and sigmoid colon without diverticulitis. 4. Small left inguinal hernia only contains fat. Chest X-Ray 09/01/18 00:00 CONCLUSION: The lungs are clear. Discharge Plan Discharge Disposition Patient Disposition: 01 Discharge Home Discharge Condition Condition: Good Discharge Order Discharge Orders: Discharge Order (Routine); Ordered 09/03/18 Ordered By: Rich Mckeon Physicians Team ED Provider: Valentín Bey Primary Care Provider: ELIF, Attending Provider: Rich Mckeon Other Providers: Harvey Morejon Rxs /Orders / Referrals /Forms Prescriptions: New metronidazole 500 mg Tablet 500 mg PO Q8HR Qty: 15 RF: 0 levofloxacin 750 mg tablet 750 mg PO DAILY 5 Days Qty: 5 RF: 0 Continue methylphenidate HCl [Concerta] 18 mg Tablet Extended Release 24hr 18 mg PO DAILY RF: 0 metoprolol tartrate 25 mg Tablet 25 mg PO DAILY RF: 0 Referrals: UNKNOWN, [Primary Care Provider] - See Instructions (CALL [facility] FOR A FOLLOW UP APPOINTMENT AT [phone] (NEED MEDICAL RECORD INFORMATION)) Discharge Instructions Patient Printed Instructions: Metronidazole (By mouth), Levofloxacin (By mouth) , Rectal Bleeding (DC) Additional Instructions: Follow up with PCP and GI back home. Post Discharge Care Plan Care Plan Goals: Your Health Problems: Goals to Promote Your Health: * To prevent worsening of your condition * To maintain your health at the optimal level Directions to Meet Your Goals: * Take your medications as prescribed * Follow your dietary instruction * Follow activity as directed * Keep your appointments as scheduled * Take your immunizations and boosters as scheduled * If your symptoms worsen call your PCP * If no PCP go to Urgent Care or Emergency Room Smoking is dangerous to your health. Avoid second hand smoke. You may reach the 24-hour crisis hotline for domestic abuse at . Status ED Status: Left Department Discharge Information Discharge Date/Time: 09/03/18 10:42
== END 2018-09-03 10:42 | disposition home or self-care (01) | DRG 378 ==
LOC: NEDA 22:25 → NEPE 22:25 → NEPHCDU 08-29 02:22 → N04 08-30 21:12
PROVIDERS: ADMIT Family Medicine; ATTEND Family Medicine
PROC: COLONOS (2018-08-30 11:40)
PROC: PANENDO (2018-09-01 11:36)
DX: K57.92 Diverticulitis of intestine, part unspecified, without perforation or abscess without bleeding; D62 Acute posthemorrhagic anemia; K64.4 Residual hemorrhoidal skin tags; K31.7 Polyp of stomach and duodenum; E87.6 Hypokalemia; K57.31 Diverticulosis of large intestine without perforation or abscess with bleeding; I10 Essential (primary) hypertension; K64.8 Other hemorrhoids; R55 Syncope and collapse; F98.8 Other specified behavioral and emotional disorders with onset usually occurring in childhood and adolescence; K40.90 Unilateral inguinal hernia, without obstruction or gangrene, not specified as recurrent
CPT/HCPCS: 36430; 71010; 71045; 74174; 78278; 80048; 80053; 81001; 82040; 82948; 82962; 83605; 85014; 85018; 85025; 85027; 85610; 85730; 86850; 86900; 86901; 86923; 87040; 90761; 93005; 96361; 96374; 96376; 99285; A9560; C9113; G0378; J1956; J2370; J2704; J7030; J7050; P9016; Q3010; Q9967